=== PATIENT | female | born 1980 | race Caucasian/White ===

== ENCOUNTER 2019-03-03 11:23 | Emergency (ER) | payer BC ==
--- NOTE | 2019-03-03 12:03 | Emergency Department Record ---
History of Present Illness - General Chief complaint: Bite Insect/other Stated complaint: TICK BITE Time Seen by Provider: 03/03/19 11:55 Source: Patient Mode of Arrival: Ambulatory Limitations: No limitations - History of Present Illness Initial comments: 38 yo female presents with a recent found tick and a rash. She found a tick on her left upper posterior arm. It was removed with peppermint oil. She developed a rash on her left flank and a bruise at the site. No fever, chills, body aches or other concerns. MD complaint: Rash Onset/Timin -: Days(s) Severity: Mild Consistency: Constant Improves with: None Worsens with: None Context: None Associated symptoms: Denies other symptoms Treatments Prior to Arrival: None - Related Data Previous Rx's Medication Instructions Recorded Doxycycline Hyclate 100 mg PO BID #14 cap 03/03/19 Allergies Allergy/AdvReac Type Severity Reaction Status Date / Time lisinopril AdvReac cough Verified 03/03/19 11:36 Travel Screening - Travel/Exposure Within Last 30 Days Have you traveled within the last 30 days?: No Review of Systems Constitutional: Denies: Chills, Fever, Malaise, Weakness Eyes: Denies: Eye discharge ENT: Denies: Congestion, Throat pain Respiratory: Denies: Cough Cardiovascular: Denies: Chest pain, Palpitations, Syncope Endocrine: Denies: Fatigue Gastrointestinal: Denies: Abdominal pain, Diarrhea, Nausea, Vomiting Genitourinary: Denies: Dysuria, Urgency Musculoskeletal: Denies: Arthralgia, Back pain, Myalgia Skin: Reports: As per HPI, Change in color, Rash Neurological: Denies: Confusion Psychiatric: Denies: Anxiety Hematological/Lymphatic: Denies: Blood Clots, Easy bleeding, Easy bruising Past Medical History - SOCIAL HISTORY Smoking Status: Never smoker Alcohol Use: None Drug Use: None - RESPIRATORY Hx Respiratory Disorders: No - CARDIOVASCULAR Hx Cardio Disorders: Yes Hx Hypertension: Yes - NEURO Hx Neuro Disorders: No - GI Hx GI Disorders: No - Hx Genitourinary Disorders: No - ENDOCRINE Hx Endocrine Disorders: No - MUSCULOSKELETAL Hx Musculoskeletal Disorders: No - PSYCH Hx Psych Problems: No - HEMATOLOGY/ONCOLOGY Hx Hematology/Oncology Disorders: No Family Medical History Any Significant Family History?: No Physical Exam - General General Appearance: Alert, Oriented x3, Cooperative, No acute distress Limitations: No limitations - Head Head exam: Normal inspection - Eye Eye exam: Normal appearance. negative: Conjunctival injection, Scleral icterus - ENT ENT exam: Normal exam Ear exam: Normal external inspection Nasal Exam: Normal inspection Mouth exam: Normal external inspection - Neck Neck exam: Normal inspection - Respiratory Respiratory exam: Normal lung sounds bilaterally. negative: Respiratory distress - Cardiovascular Cardiovascular Exam: Regular rate, Normal rhythm, Normal heart sounds - GI/Abdominal GI/Abdominal exam: Soft, Other (rash) - Rectal Rectal exam: Deferred - exam: Deferred - Extremities Extremities exam: negative: Normal inspection Image of Full Body: 1 - quarter size bruise 2 - hive like rash to flank - Back Back exam: Denies: Normal inspection - Neurological Neurological exam: Alert, Oriented X3 - Psychiatric Psychiatric exam: Normal affect, Normal mood - Skin Skin exam: Erythema, Rash Course Vital Signs 03/03/19 11:30 Temperature 98.9 F Pulse Rate 92 H Respiratory 18 Rate Blood Pressure 147/91 Pulse Ox 97 - Reevaluation(s) Reevaluation #1: 03/03/19 12:26 Given the unknown time of exposure and rash Doxycycline ordered Disposition Disposition: Discharge Clinical Impression: Tick bite Disposition: Home, Self-Care Condition: (1) Good Instructions: Tick Bite (ED) Additional Instructions: Call your doctor for the next available follow up appointment Return to the ER for a recheck if worse, any new concerns or questions Take the prescriptions provided as directed Prescriptions: Doxycycline Hyclate 100 mg PO BID #14 cap Forms: Patient Portal Access Time of Disposition: 12:03 Quality - Quality Measures Quality Measures: N/A - Blood Pressure Screening Does Patient Have Any of the Following: No Blood Pressure Classification: Hypertensive Reading Systolic Measurement: 147 Diastolic Measurement: 91 Screening for High Blood Pressure: < Pre-Hypertensive BP, F/U Documented > [G8950] Pre-Hypertensive Follow-up Interventions: Referral to alternative/primary care provider.
== END 2019-03-03 12:19 | disposition home or self-care (01) ==
LOC: ER 11:23
DX: S40.862A Insect bite (nonvenomous) of left upper arm, initial encounter (principal); W57.XXXA Bitten or stung by nonvenomous insect and other nonvenomous arthropods, initial encounter; I10 Essential (primary) hypertension
CPT/HCPCS: 99282

== ENCOUNTER 2019-12-13 12:10 | Emergency (ER) | payer BC ==
--- NOTE | 2019-12-13 12:26 | Emergency Department Record ---
History of Present Illness - General Chief Complaint: Abdominal Pain Stated Complaint: ABD PAIN Time Seen by Provider: 12/13/19 12:13 Source: Patient Mode of Arrival: Ambulatory Limitations: No limitations - History of Present Illness Initial Comments: The patient is here due to a 2 day hx of intermittent pelvic cramping. The cramping is off and on and at this time is gone. She denies any dysuria, or vaginal discharge or bleeding but she did have a very minimal amount of blood present when wiping after urinating this AM. The patient states her LMP was 6 weeks ago and she did come over from the where she did have a positive Preg urine test. The patient has been 6 times, has 2 children, and 2 miscarriages, and one tubal . MD Complaint: Abdominal pain Onset/Timin -: Days(s) Radiation: Suprapubic Migration to: LLQ, RLQ Quality: Cramping Improves With: Nothing Worsens With: Nothing Associated Symptoms: Denies other symptoms - Related Data LMP Date: 10/25/19 Patient : Yes Allergies Allergy/AdvReac Type Severity Reaction Status Date / Time lisinopril AdvReac cough Verified 12/13/19 12:15 Travel/Exposure Screening - Travel/Exposure Within Last 30 Days Have you traveled within the last 30 days?: No - Additonal Travel/Exposure Details Have you been exposed to anyone with a communicable illness?: No Review of Systems Constitutional: Denies: Chills, Fever Eyes: Denies: Eye discharge ENT: Denies: Congestion Respiratory: Denies: Cough, Dyspnea Past Medical History - SOCIAL HISTORY Smoking Status: Never smoker Alcohol Use: None Drug Use: None - 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 - RESPIRATORY Hx Respiratory Disorders: No - CARDIOVASCULAR Hx Cardio Disorders: Yes Hx Hypertension: Yes - NEURO Hx Neuro Disorders: No - GI Hx GI Disorders: No - Hx Genitourinary Disorders: No Comment:: tubal x2 ,miscarriag x2 - ENDOCRINE Hx Endocrine Disorders: No Hx Diabetes: (pre) - MUSCULOSKELETAL Hx Musculoskeletal Disorders: No - PSYCH Hx Psych Problems: No - HEMATOLOGY/ONCOLOGY Hx Hematology/Oncology Disorders: No Family Medical History Any Significant Family History?: No Physical Exam - General General Appearance: Alert, Oriented x3, Cooperative, No acute distress - Head Head exam: Atraumatic, Normocephalic - Eye Eye exam: Normal appearance, PERRL - ENT Throat exam: Normal inspection. negative: Tonsillar erythema, Tonsillar exudate - Neck Neck exam: Normal inspection, Full ROM. negative: Tenderness - Respiratory Respiratory exam: Normal lung sounds bilaterally. negative: Respiratory distress - Cardiovascular Cardiovascular Exam: Regular rate, Normal rhythm, Normal heart sounds - GI/Abdominal GI/Abdominal exam: Soft, Normal bowel sounds. negative: Rebound, Rigid, Tenderness - Extremities Extremities exam: Normal inspection, Full ROM, Normal capillary refill. negative: Tenderness - Neurological Neurological exam: Alert, Normal gait. negative: Abnormal gait, Motor sensory deficit - Psychiatric Psychiatric exam: negative: Anxious Course Vital Signs 12/13/19 12:11 Temperature 98.1 F Pulse Rate 78 Respiratory 20 Rate Blood Pressure 159/97 Pulse Ox 98 - Reevaluation(s) Reevaluation #1: The patient is doing very well at this time. She denies any pain or cramping and feels well. I did discuss the HCG level which is 250 and the fact we most likely will not be able to see anything on US. Her RH is Pos also so she will not need Rhogam at this time. 12/13/19 14:17 Reevaluation #2: The patient is doing very well at this time. She denies any pain or discomfort or any bleeding. The US was WNL and did not demonstrate any IUP or ectopic which was expected due to the HCG of 250. She is to rest for 2 days and return to the ER for recheck in 2 days. She is to return sooner for any pain, fever, vomiting, or bleeding. 12/13/19 14:48 Medical Decision Making - Lab Data Result diagrams: 12/13/19 12:25 12/13/19 12:25 Disposition Disposition: Discharge Clinical Impression: Threatened in early Disposition: Home, Self-Care Condition: (2) Stable Instructions: Abdominal Pain in (ED) Additional Instructions: Please rest and take Tylenol for pain and practice pelvic rest. Return to the ER on Monday for recheck and repeat HCG testing. Return sooner for any worsening pain, fever, vomiting, or bleeding. Forms: Patient Portal Access Time of Disposition: 14:50 Quality - Quality Measures Quality Measures: (14-50yr) - : US Determination Quality Measure: Measure #254: US Determination of Location ICD10 Codes Entered: Yes View Details: Yes US Determination of Location: < Trans-Abdominal or Trans-Vaginal US Performed > [S8606] - : Rhogam Quality Measure: Measure #255: Rhogam for Rh-Negative Women ICD10 Codes Entered: Yes View Details: Yes Rhogam for Rh-Negative Women at Risk: Rh-immunoglobulin NOT Ordered w/Reason [D2410] Reason for not prescribing Rhogam: Other - Blood Pressure Screening View Details: Yes Does Patient Have Any of the Following: No Blood Pressure Classification: Hypertensive Reading Systolic Measurement: 159 Diastolic Measurement: 97 Screening for High Blood Pressure: < First Hypertensive BP, F/U Documented > [I5664] First Hypertensive Follow-up Interventions: Referral to alternative/primary care provider.
[2019-12-13 12:42] LABS: ABSOLUTE NEUTROPHIL COUNT 6.28; BASO % 0.4 % (0-6); EOS % 2.4 % (0-6); GRAN % 58.3 % (47-80); HEMATOCRIT 40.4 % (35.0-47.0); HEMOGLOBIN 13.2 gm/dl (11.6-16.0); LYMPH % 34.5 % (16-45); MEAN CELL VOLUME 86.7 fl (81-97); MEAN CORPUSCULAR HEMOGLOBIN 28.3 pg (27-33); MEAN CORPUSCULAR HGB CONC 32.7 g/dl (32-36); MEAN PLATELET VOLUME 9.5 fl (7.4-10.4); MONO % 4.4 % (0-9); PLATELET COUNT 369 K/uL (130-400); RED BLOOD COUNT 4.66 M/uL (3.80-5.40); RED CELL DISTRIBUTION WIDTH 13.7 % (11.5-14.5); WHITE BLOOD COUNT W/O DIFF 10.8 K/uL (4.2-12.2)
[2019-12-13 12:43] LABS: URINE APPEARANCE CLEAR; URINE BILIRUBIN NEGATIVE (NEGATIVE); URINE BLOOD NEGATIVE (NEGATIVE); URINE COLOR YELLOW; URINE GLUCOSE (UA) NEGATIVE (NEGATIVE); URINE KETONE NEGATIVE (NEGATIVE); URINE LEUKOCYTE ESTERASE NEGATIVE (NEGATIVE); URINE NITRITE NEGATIVE (NEGATIVE); URINE PROTEIN NEGATIVE (NEGATIVE); URINE UROBILINOGEN 0.2 E.U./dL (0.20 - 1.00)
[2019-12-13 12:51] LABS: BLOOD UREA NITROGEN 9 mg/dL (6-20); CREATININE 0.6 mg/dL (0.5-0.9); EST GLOMERULAR FILTRATION RATE > 60 mL/min
[2019-12-13 12:54] LABS: GLUCOSE,RANDOM 89 mg/dL (74-109)
--- NOTE | 2019-12-13 14:42 | ULTRASOUND REPORT ---
EXAMINATION: First Trimester OB Ultrasound EXAM DATE: 12/13/2019 2:04 PM TECHNIQUE: Endovaginal ultrasound imaging was performed after the transabdominal exam for better res olution. INDICATION: First Trimester . pelvic pain in early preg. COMPARISON: None Transabdominal Ultrasound of the Pelvis Findings: 1. Uterus Size: The uterus measures 11.3 x 5 x 8.2 cm in dimension (length x AP x width). 2. Endometrium: The visualized endometrium measures 20 mm in thickness. 3. Myometrium: In the left side of the uterus there is a subserosal hypoechoic nodule consistent wit h a fibroid which measures 4.2 x 5.2 x 3.9 cm. The myometrium is unremarkable. 4. Ovaries: The right ovary not visualized, but to be surgically absent. The left ovary measures 2.5 x 3.7 x 2.7 cm in dimension. 5. Bilateral Adnexa: No adnexal masses or abnormal cysts are demonstrated. 6. Other Findings: None. Transvaginal Ultrasound of the Pelvis Findings: 1. Uterus Size: 11.1 x 4.9 x 6.8 cm. Nabothian cysts noted. 2. Endometrium: The endometrium measures 18 mm in thickness. The endometrium is normal. A gestationa l sac is not currently seen within the endometrial canal. 3. Myometrium: In the left uterine horn there is a heterogeneous hypoechoic nodule consistent with a subserosal fibroid which measures 5.2 x 4.7 x 4.4 cm. 4. Ovaries: The right ovary was not visualized transvaginally, may been surgically removed. The left ovary measures 3.4 x 3.5 x 3.2 cm. 5. Other Findings: No adnexal mass or free fluid is present.. Vascular Imaging: Duplex Doppler ultrasound was performed to assess for an ovarian torsion. Color Do ppler images show blood flow in the left ovary. Intraovarian spectral venous and arterial waveforms a re unidirectional and have unremarkable uncorrected velocities. There is no evidence of an ovarian to rsion. Impression: 1. of unknown location. With a positive test this ultrasound is consistent with a very early intrauterine , spontaneous or ectopic . Consider correlation w ith beta-hCG levels and/or follow-up ultrasound. 2. Unremarkable left ovary. No evidence of torsion. Arterial and venous waveforms were demonstrated. 3. The right ovary was not visualized transabdominally or transvaginally. The patient thinks this may have been removed during prior surgery for ectopic. Dictated by: Audrey Eason MD on 12/13/2019 2:27 PM. .
== END 2019-12-13 14:56 | disposition home or self-care (01) ==
LOC: ER 12:10
DX: O20.0 Threatened abortion (principal)
CPT/HCPCS: 76801; 76817; 80048; 81003; 84702; 84703; 85025; 86901; 99284

== ENCOUNTER 2019-12-15 12:41 | Emergency (ER) | payer BC ==
--- NOTE | 2019-12-15 13:01 | Emergency Department Record ---
History of Present Illness - General Chief Complaint: Recheck - Other Stated Complaint: RETURNED DUE TEST RESULT Time Seen by Provider: 12/15/19 12:51 Source: Patient Mode of arrival: Ambulatory Limitations: No limitations - History of Present Illness Initial Comments: The patient is here due to a threatened AB. She has had some pelvic cramping for the last few days and is 4-5 weeks . She was in the ER 2 days ago and had a quant HCG of 250 with a neg pelvic US. Today she is here for recheck and a repeat HCG. She denies any significant pain or bleeding. Complaint: Other Onset/Timin -: Days(s) Initial Visit For: Other Returns Today for: Other Symptoms Since Prior Visit: No new symptoms Associated Symptoms: None - Related Data Allergies Allergy/AdvReac Type Severity Reaction Status Date / Time lisinopril AdvReac cough Verified 12/13/19 12:15 Travel/Exposure Screening - Travel/Exposure Within Last 30 Days Have you traveled within the last 30 days?: No - Additonal Travel/Exposure Details Have you been exposed to anyone with a communicable illness?: No Review of Systems Constitutional: Denies: Chills, Fever Past Medical History - SOCIAL HISTORY Smoking Status: Never smoker - RESPIRATORY Hx Respiratory Disorders: No - CARDIOVASCULAR Hx Cardio Disorders: Yes Hx Hypertension: Yes - NEURO Hx Neuro Disorders: No - GI Hx GI Disorders: No - Hx Genitourinary Disorders: No Comment:: tubal x2 ,miscarriag x2 - ENDOCRINE Hx Endocrine Disorders: No Hx Diabetes: (pre) - MUSCULOSKELETAL Hx Musculoskeletal Disorders: No - PSYCH Hx Psych Problems: No - HEMATOLOGY/ONCOLOGY Hx Hematology/Oncology Disorders: No Family Medical History Any Significant Family History?: No Physical Exam - General General Appearance: Alert, Oriented x3, Cooperative, No acute distress - Head Head exam: Atraumatic, Normocephalic, Normal inspection - Eye Eye exam: Normal appearance - Neck Neck exam: Normal inspection, Full ROM. negative: Tenderness - Respiratory Respiratory exam: Normal lung sounds bilaterally. negative: Respiratory distress - Cardiovascular Cardiovascular Exam: Regular rate, Normal rhythm, Normal heart sounds - GI/Abdominal GI/Abdominal exam: Soft, Normal bowel sounds. negative: Guarding, Rebound, Rigid, Tenderness - Extremities Extremities exam: Normal inspection, Full ROM, Normal capillary refill. negative: Tenderness Course Vital Signs 12/15/19 12:51 Temperature 98.4 F Pulse Rate 89 Respiratory 20 Rate Blood Pressure 138/103 Pulse Ox 96 - Reevaluation(s) Reevaluation #1: The patient is doing very well and her quant HCG did go up over 100%. I did dis cuss the plan with Dr. Laureano at [facility] and he does agree with the plan for discharge and they will F/U later this week in the office. The patient understands the reasons to return for any worsening issues. 12/15/19 14:03 Disposition Disposition: Discharge Clinical Impression: Threatened in early Disposition: Home, Self-Care Condition: (2) Stable Instructions: Threatened Miscarriage (ED) Additional Instructions: Please continue with the Pelvic Rest precautions and please call [facility] in the morning for an appointment. Please see the OB doctor later this week and return to the ER for any pain, bleeding, or fever. Forms: Patient Portal Access Time of Disposition: 14:03 Quality - Quality Measures Quality Measures: (14-50yr) - : US Determination Quality Measure: Measure #254: US Determination of Location ICD10 Codes Entered: Yes View Details: Yes US Determination of Location: Trans-Abdominal or Trans-Vaginal US NOT Performed [G8808] - : Rhogam Quality Measure: Measure #255: Rhogam for Rh-Negative Women ICD10 Codes Entered: Yes View Details: Yes Rhogam for Rh-Negative Women at Risk: < Rh-immunoglobulin (Rhogam) Ordered > [G8809] - Blood Pressure Screening View Details: Yes Does Patient Have Any of the Following: Active Dx of HTN Blood Pressure Classification: Hypertensive Reading Systolic Measurement: 138 Diastolic Measurement: 103 Screening for High Blood Pressure: Patient Exclusion, Hx of HTN [G9744]
== END 2019-12-15 14:16 | disposition home or self-care (01) ==
LOC: ER 12:41
DX: O20.0 Threatened abortion (principal); Z3A.01 Less than 8 weeks gestation of pregnancy
CPT/HCPCS: 84702; 99283